=== PATIENT | male | born 1970 | race Caucasian/White ===

== ENCOUNTER 2019-05-09 18:34 | Emergency (ER) | payer BC ==
--- NOTE | 2019-05-09 19:01 | EDM.PDOC ---
ED HPI GENERAL MEDICAL PROBLEM - General Chief Complaint: Trauma Stated Complaint: HEAD INJURY EMS ARRIVAL Time Seen by Provider: 05/09/19 18:57 Source of Information: Reports: Patient, EMS, Family History Limitations: Reports: No Limitations - History of Present Illness INITIAL COMMENTS - FREE TEXT/NARRATIVE: CC fall HPI: This is a 48-year-old male who was up on a ladder and had an unwitnessed fall. Patient did have a positive loss of consciousness and did not ambulate since the fall. Patient was altered and seen but is returned to normal mentation but has no memory of the event. Apparently the patient suffered a laceration to the occiput. He has no other complaints at this time other than a posterior headache. No vomiting. PMHX/PSHX: Negative Social History: Negative for tobacco, negative for alcohol, negative for street drugs or marijuana Family history: Hypertension ROS: see chart PE: Patient seen laying in a caught in a cervical collar with a bandage dressing around his head. VS afebrile vital signs stable General: No apparent distress Head: Occipital scalp laceration is Y-shaped and 11 cm Eyes: EOMI PERRLA Ears: TMs intact no hemotympanum no signs of infection no mastoid tenderness Nose: No epistaxis nares patent no septal wall hematoma Throat: No pharyngeal erythema or exudate no tonsillar enlargement Neck: Supple, no cervical lymphadenopathy Chest wall: No point tenderness Heart: Regular rate and rhythm without murmur gallop or rub Lungs: Clear to auscultation and percussion without rales rhonchi or wheeze Abdomen: Soft nontender nondistended without guarding rigidity or rebound Neck: No spinal point tenderness full range of motion in all 6 directions Back: No spinal paraspinal or CVA tenderness. Patient was rolled and his entire spine was palpated and percussed. No point tenderness noted Extremities: full rom through out. no effusions skin: Warm dry intact no rashes the patient has a Y-shaped occipital scalp laceration that is a total of 11 cm neurologic: cranial nerves II through XII intact. No focal motor or sensory deficits noted GCS of 15. MDM: Differential diagnosis: Spine injury intracranial injury concussion laceration ED course: CT scan of the head is negative CT scan of the cervical spine is negative c-collar removed. Patient awake and alert with a GCS of 15. His wound was copiously irrigated. I explored it to its depth with a gloved finger. No foreign body seen or noted. The wound was then closed with 15 sahil after being anesthetized with 7 cc of lidocaine with epinephrine. No signs of any orthopedic injury. Patient's abdomen is benign. Family here to take the patient home. Patient given appropriate concussion and laceration instructions Diagnosis: Concussion, 11 cm scalp laceration Disposition: Home head Pain Score (Numeric/FACES): 6 - Related Data Allergies Allergy/AdvReac Type Severity Reaction Status Date / Time No Known Allergies Allergy Verified 03/25/16 13:26 Home Meds: Home Meds . [No Known Home Meds] 03/25/16 [History] Past Medical History Other HEENT History: wears glasses/contacts, has top dental flipper Gastrointestinal History: Reports: Colon Polyp Musculoskeletal History: Reports: Fracture - Past Surgical History Head Surgeries/Procedures: Reports: None GI Surgical History: Reports: Colonoscopy Other Musculoskeletal Surgeries/Procedures:: hx ankle fusion Review of Systems - Review of Systems Review Of Systems: Comprehensive ROS is negative, except as noted in HPI. ED EXAM, GENERAL - Physical Exam Exam: See Below Free Text/Narrative:: My dictation Course - Vital Signs Last Recorded V/S: Last Vital Signs Temp 36.4 C 05/09/19 18:37 Pulse 69 05/09/19 18:37 Resp 16 05/09/19 18:37 BP 141/90 H 05/09/19 18:37 Pulse Ox 93 L 05/09/19 18:37 - Orders/Labs/Meds Orders: Active Orders 24 hr Category Date Time Status Vaccines to be Administered [RC] PER UNIT ROUTINE Care 05/09/19 20:07 Active Vaccines to be Administered [RC] PER UNIT ROUTINE Care 05/09/19 20:14 Active DRUG SCREEN, URINE [URCHEM] Stat Lab 05/09/19 18:45 Ordered Labs: Laboratory Tests 05/09/19 05/09/19 05/09/19 Range/Units 19:10 19:10 19:10 WBC 8.73 (4.0-11.0) K/uL RBC 5.30 (4.50-5.90) M/uL Hgb 15.8 (13.0-17.0) g/dL Hct 43.9 (38.0-50.0) % MCV 82.8 (80.0-98.0) fL MCH 29.8 (27.0-32.0) pg MCHC 36.0 (31.0-37.0) g/dL RDW Std Deviation 37.9 (28.0-62.0) fl RDW Coeff of Ariel 13 (11.0-15.0) % Plt Count 239 (150-400) K/uL MPV 8.90 (7.40-12.00) fL Neut % (Auto) 68.8 (48.0-80.0) % Lymph % (Auto) 19.2 (16.0-40.0) % [place] % (Auto) 6.4 (0.0-15.0) % Eos % (Auto) 5.4 (0.0-7.0) % Baso % (Auto) 0.2 (0.0-1.5) % Neut # (Auto) 6.0 H (1.4-5.7) K/uL Lymph # (Auto) 1.7 (0.6-2.4) K/uL [place] # (Auto) 0.6 (0.0-0.8) K/uL Eos # (Auto) 0.5 (0.0-0.7) K/uL Baso # (Auto) 0.0 (0.0-0.1) K/uL Nucleated RBC % 0.0 /100WBC Nucleated RBCs # 0 K/uL INR 1.01 Lactate (0.20-2.00) mmol/L Sodium 140 (136-148) mmol/L Potassium 3.9 (3.5-5.1) mmol/L Chloride 102 (98-107) mmol/L Carbon Dioxide 30.3 (21.0-32.0) mmol/L BUN 18 (7.0-18.0) mg/dL Creatinine 1.0 (0.8-1.3) mg/dL Est Cr Clr Drug Dosing 104.31 mL/min Estimated GFR (MDRD) > 60.0 ml/min Glucose 180 H (74-106) mg/dL Calcium 9.5 (8.5-10.1) mg/dL Total Bilirubin 0.3 (0.2-1.0) mg/dL AST 25 (15-37) IU/L ALT 46 (14-63) IU/L Alkaline Phosphatase 106 (46-116) U/L Total Protein 8.0 (6.4-8.2) g/dL Albumin 3.9 (3.4-5.0) g/dL Globulin 4.1 H (2.6-4.0) g/dL Albumin/Globulin Ratio 1.0 (0.9-1.6) Ethyl Alcohol <3 mg/dL Blood Type Antibody Screen 05/09/19 05/09/19 Range/Units 19:10 19:10 WBC (4.0-11.0) K/uL RBC (4.50-5.90) M/uL Hgb (13.0-17.0) g/dL Hct (38.0-50.0) % MCV (80.0-98.0) fL MCH (27.0-32.0) pg MCHC (31.0-37.0) g/dL RDW Std Deviation (28.0-62.0) fl RDW Coeff of Ariel (11.0-15.0) % Plt Count (150-400) K/uL MPV (7.40-12.00) fL Neut % (Auto) (48.0-80.0) % Lymph % (Auto) (16.0-40.0) % [place] % (Auto) (0.0-15.0) % Eos % (Auto) (0.0-7.0) % Baso % (Auto) (0.0-1.5) % Neut # (Auto) (1.4-5.7) K/uL Lymph # (Auto) (0.6-2.4) K/uL [place] # (Auto) (0.0-0.8) K/uL Eos # (Auto) (0.0-0.7) K/uL Baso # (Auto) (0.0-0.1) K/uL Nucleated RBC % /100WBC Nucleated RBCs # K/uL INR Lactate 2.2 H* (0.20-2.00) mmol/L Sodium (136-148) mmol/L Potassium (3.5-5.1) mmol/L Chloride (98-107) mmol/L Carbon Dioxide (21.0-32.0) mmol/L BUN (7.0-18.0) mg/dL Creatinine (0.8-1.3) mg/dL Est Cr Clr Drug Dosing mL/min Estimated GFR (MDRD) ml/min Glucose (74-106) mg/dL Calcium (8.5-10.1) mg/dL Total Bilirubin (0.2-1.0) mg/dL AST (15-37) IU/L ALT (14-63) IU/L Alkaline Phosphatase (46-116) U/L Total Protein (6.4-8.2) g/dL Albumin (3.4-5.0) g/dL Globulin (2.6-4.0) g/dL Albumin/Globulin Ratio (0.9-1.6) Ethyl Alcohol mg/dL Blood Type O POSITIVE Antibody Screen NEGATIVE Meds: Medications Discontinued Medications Generic Name Dose Route Start Last Admin Trade Name Freq PRN Reason Stop Dose Admin Diphtheria/Tetanus/Acell Pertussis 0.5 ml 05/09/19 20:07 05/09/19 20:14 Adacel IM 05/09/19 20:08 Not Given .ONCE ONE Diphtheria/Tetanus/Acell Pertussis 0.5 ml 05/09/19 20:14 05/09/19 20:38 Adacel IM 05/09/19 20:15 0.5 ml .ONCE ONE Administration Lidocaine/Epinephrine 20 ml 05/09/19 20:38 05/09/19 20:39 Xylocaine 1% With Epinephrine 1:100,000 INJECT 05/09/19 20:39 20 ml ONETIME ONE Administration Lidocaine/Epinephrine Confirm 05/09/19 20:35 05/09/19 20:40 Xylocaine 1% With Epinephrine 1:100,000 Administered 05/09/19 20:36 Not Given Dose 20 ml .ROUTE .STK-MED ONE Departure - Departure Time of Disposition: 20:49 Disposition: Home, Self-Care 01 Clinical Impression: Concussion with brief (less than one hour) loss of consciousness Laceration of scalp Qualifiers: Encounter type: initial encounter Qualified Code(s): S01.01XA - Laceration without foreign body of scalp, initial encounter - Discharge Information Instructions: Stitches, Olla, or Adhesive Wound Closure, [id number], Post- Concussion Syndrome Referrals: Jordy Hayes MD [Primary Care Provider] - Forms: ED Department Discharge Additional Instructions: HEAD INJURY You have been evaluated today for a closed head injury. Based on my evaluation, I do not suspect any bleeding within the brain or skull. You should return immediately for: -worsening headache -vomiting -confusion -any other new or worsening symptoms You may have a concussion - a condition which is not always readily identifiable on initial evaluation. It is important to follow up with your doctor for a recheck. You should avoid any activities which would put you at risk for a subsequent head injury until all of your symptoms have resolved and you have been cleared by your doctor. It is best to rest in a semi darkened room for the next 48 hours. Avoid loud music, stimulatory video games or movies for the next 48 hours. Get as much sleep as you can in the next few days. LACERATION You have a laceration or other superficial skin injury. You should keep the wound clean, dry and lightly covered with antibiotic ointment. Watch for signs of infection such as: -redness -pain -swelling -wound discharge Return immediately if any of these occur. There will be scarring with any wound. The scar will continue to change for 6 months to a year. If the wound is in a visible area, one big contributor to scar appearance is sun exposure. Once the wound has healed (1-2 weeks), use sunscreen liberally if your wound is in a sun-exposed location. Your sahil need to be removed in 10 days. You may return here to have them removed, or you may follow up with your doctor. Sepsis Event Note - Focused Exam Vital Signs: Vital Signs Temp Pulse Resp BP Pulse Ox 05/09/19 18:37 36.4 C 69 16 141/90 H 93 L Date Exam was Performed: 05/09/19 Time Exam was Performed: 20:47 - My Orders Last 24 Hours: My Active Orders 05/09/19 20:07 Vaccines to be Administered [RC] PER UNIT ROUTINE 05/09/19 20:14 Vaccines to be Administered [RC] PER UNIT ROUTINE - Assessment/Plan Last 24 Hours: My Active Orders 05/09/19 20:07 Vaccines to be Administered [RC] PER UNIT ROUTINE 05/09/19 20:14 Vaccines to be Administered [RC] PER UNIT ROUTINE
--- NOTE | 2019-05-09 19:22 | CT ---
Head CT Technique: Multiple axial sections through the brain were obtained. Intravenous contrast was not utilized. Comparison: No prior intracranial imaging. Findings: Large soft tissue hematoma is seen within the posterior right scalp. There is evidence of skin injury with a small amount of soft tissue air. Mild motion artifact is seen. Mucosal thickening is noted within the left maxillary sinus. Mastoid sinuses are clear. No acute calvarial abnormality is appreciated. Ventricles along with basal cisterns and sulci over the convexities are within normal limits. Details are slightly limited due to motion. No abnormal parenchymal densities are seen. No evidence of intracranial hemorrhage. No midline shift or mass-effect is seen. Impression: 1. Large soft tissue hematoma with evidence of skin injury shown by soft tissue air. 2. No acute intracranial abnormality is seen. Details slightly limited due to motion. Diagnostic code #3 This report was dictated in [place] Standard Time
--- NOTE | 2019-05-09 19:22 | CT ---
CT cervical spine Technique: Multiple axial sections through the cervical spine were obtained. Study was obtained from above C1 inferiorly to the mid T3 level. Reconstructed sagittal and coronal images were obtained. Comparison: No prior cervical spine imaging. Ligamentum nuchal calcification is seen. Vertebral body heights and disc spaces are maintained. Slight posterior osteophytes are noted at C3-4. Minimal scattered anterior osteophytes are noted. No fracture is identified. No bony central or bony neural foraminal stenosis is seen. No abnormal subluxation is appreciated. Impression: 1. Ligamentum nuchal calcification and slight degenerative change. 2. Nothing acute is appreciated on CT study of the cervical spine. Diagnostic code #2 This report was dictated in [place] Standard Time
[2019-05-09 19:28] VITALS: BP 141/90; PULSE 69
[2019-05-09 19:54] LABS: BLOOD UREA NITROGEN,BUN 18 mg/dL (7.0-18.0); CARBON DIOXIDE,CO2 30.3 mmol/L (21.0-32.0); CHLORIDE,CL 102 mmol/L (98-107); GLUCOSE RANDOM 180 mg/dL (74-106); POTASSIUM,K 3.9 mmol/L (3.5-5.1); SODIUM,NA 140 mmol/L (136-148)
[2019-05-09] MEDS ORDERED: Diphtheria,Pertussis(Acell),Tetanus Vaccine 0.5 ML Syringe IM ONE ×2 (20:07→20:14)
[2019-05-09] MEDS ORDERED: Lidocaine 1% with EPINEPHrine 1:100,000 20 ML MDV ONE (20:35)
[2019-05-09] MEDS ORDERED: Lidocaine 1% with EPINEPHrine 1:100,000 20 ML MDV INJECT ONE (20:38)
== END 2019-05-09 21:06 | disposition home or self-care (01) ==
LOC: MW.ED 18:44
DX: S06.0X9A Concussion with loss of consciousness of unspecified duration, initial encounter (principal); S01.01XA Laceration without foreign body of scalp, initial encounter; Z23 Encounter for immunization; W19.XXXA Unspecified fall, initial encounter
CPT/HCPCS: 12004; 36415; 70450; 70450-26; 72125; 72125-26; 80053; 80307; 83605; 85025; 85610; 86850; 86900; 86901; 90471; 90715; 99285-25

== ENCOUNTER 2022-02-03 09:50 | Day surgery (SDC) | payer BC ==
[~2022-02-03 09:50] MED LIST: Propofol 200 MG/20 ML SDV ONE; fentaNYL 100 MCG/2 ML SDV ONE
[2022-02-03] MEDS: Lactated Ringers 1,000 ML IV SCH (10:37)
[2022-02-03 11:35] VITALS: BP 102/70; PULSE 54
== END 2022-02-03 11:45 | disposition home or self-care (01) ==
LOC: MW.SDS 09:50
PROVIDERS: ATTEND Surgery
DX: Z12.11 Encounter for screening for malignant neoplasm of colon (principal); L91.8 Other hypertrophic disorders of the skin; Z86.010 Personal history of colon polyps; Z98.890 Other specified postprocedural states
CPT/HCPCS: 00812; J2704; J3010; J7120